=== PATIENT | female | born 1930 | race Caucasian/White ===

== ENCOUNTER 2017-06-09 13:19 | Observation (INO) | payer MEDICARE, BC ==
[2017-06-09] MEDS ORDERED: ASPIRIN 81 MG CHEW PO STA (13:50)
[2017-06-09] MEDS ORDERED: NITROGLYCERIN OINT 1 INCH/GM PACKET TOPICAL STA (13:50)
--- NOTE | 2017-06-09 13:53 | ED ---
General Adult HPI - General Chief complaint: Chest Pain Stated complaint: Chest Pain Time Seen by Provider: 06/09/17 13:20 Source: patient, RN notes reviewed Mode of arrival: wheelchair Limitations: no limitations - History of Present Illness Initial comments: And is extremely poor historian. Patient states she's had intermittent chest pain since yesterday she denies any difficulty breathing patient denies any shortness of breath. Patient denies any diaphoresis. Patient denies nausea. Patient states there was some pain in her left arm but she's not sure if it was associated with chest pain. Patient states pressing on her chest causes pain but she's not sure if that same chest pain she was experiencing. Patient denies any fever chills or cough. Patient denies any abdominal pain patient denies nausea vomiting diarrhea. Patient denies headache patient denies numbness weakness. Patient denies lightheadedness dizziness or near syncopal episode. Patient denies any recent injury or trauma. - Related Data Home Medications Medication Instructions Recorded Confirmed Aspirin EC [Ecotrin Low Dose] 81 mg PO DAILY 06/09/17 06/09/17 Donepezil [Aricept] 10 mg PO DAILY 06/09/17 06/09/17 Multivitamins, Thera [Multivitamin 1 tab PO DAILY 06/09/17 06/09/17 (formulary)] Pioglitazone [Actos] 15 mg PO DAILY 06/09/17 06/09/17 Propranolol HCl [Inderal Xl] 80 mg PO DAILY 06/09/17 06/09/17 Ramipril [Altace] 5 mg PO DAILY 06/09/17 06/09/17 Simvastatin [Zocor] 20 mg PO HS 06/09/17 06/09/17 glipiZIDE [Glucotrol] 5 mg PO AC-BID 06/09/17 06/09/17 metFORMIN HCL [Glucophage] 500 mg PO AC-BID 06/09/17 06/09/17 sitaGLIPtin PHOSPHATE [Januvia] 50 mg PO DAILY 06/09/17 06/09/17 Allergies Allergy/AdvReac Type Severity Reaction Status Date / Time No Known Allergies Allergy Verified 06/09/17 14:03 Review of Systems ROS Statement: Those systems with pertinent positive or pertinent negative responses have been documented in the HPI. ROS Other: All systems not noted in ROS Statement are negative. Past Medical History Past Medical History: Dementia, Diabetes Mellitus History of Any Multi-Drug Resistant Organisms: None Reported Past Surgical History: No Surgical Hx Reported Past Psychological History: No Psychological Hx Reported Smoking Status: Never smoker Past Alcohol Use History: Occasional Past Drug Use History: None Reported General Exam - General Exam Comments Initial Comments: GENERAL: Patient is well-developed and well-nourished. Patient is nontoxic and well- hydrated and is in no acute distress. ENT: Neck is soft and supple. No significant lymphadenopathy is noted. Oropharynx is clear. Moist mucous membranes. Neck has full range of motion without eliciting any pain. EYES: The sclera were anicteric and conjunctiva were pink and moist. Extraocular movements were intact and pupils were equal round and reactive to light. Eyelids were unremarkable. PULMONARY: Unlabored respirations. Good breath sounds bilaterally. No audible rales rhonchi or wheezing was noted. CARDIOVASCULAR: There is a regular rate and rhythm without any murmurs gallops or rubs. ABDOMEN: Soft and nontender with normal bowel sounds. No palpable organomegaly was noted. There is no palpable pulsatile mass. SKIN: Skin is clear with no lesions or rashes and otherwise unremarkable. NEUROLOGIC: Patient is alert and oriented x3. Cranial nerves II through XII are grossly intact. Motor and sensory are also intact. Normal speech, volume and content. Symmetrical smile. MUSCULOSKELETAL: Normal extremities with adequate strength and full range of motion. No lower extremity swelling or edema. No calf tenderness. LYMPHATICS: No significant lymphadenopathy is noted PSYCHIATRIC: Normal psychiatric evaluation. Normal interpersonal interactions appears functionally intact in deals appropriately with others. No signs of depression. No signs of anxiety. Limitations: no limitations Course Vital Signs 06/09/17 06/09/17 13:22 14:31 Temperature 98.1 F Pulse Rate 72 67 Respiratory 18 19 Rate Blood Pressure 163/74 161/71 O2 Sat by Pulse 95 95 Oximetry Medical Decision Making - Medical Decision Making EKG shows normal sinus rhythm at 66 bpm VA interval is on a 44 QRS is 74 QT interval is 404 QTC is 423. Patient's EKG shows no ST segment elevation or depression or T wave normalities are noted Chest x-ray shows no acute abnormality. Patient is no longer having any chest pain and has not had any chest pain while in the emergency department. - Lab Data Result diagrams: 06/09/17 14:08 08/17/17 14:08 Lab Results 06/09/17 06/09/17 06/09/17 Range/Units 14:08 14:08 14:08 WBC 5.8 (3.8-10.6) k/uL RBC 4.17 (3.80-5.40) m/uL Hgb 12.5 (11.4-16.0) gm/dL Hct 39.9 (34.0-46.0) % MCV 95.7 (80.0-100.0) fL MCH 30.1 (25.0-35.0) pg MCHC 31.4 (31.0-37.0) g/dL RDW 15.0 (11.5-15.5) % Plt Count 234 (150-450) k/uL Neutrophils % 62 % Lymphocytes % 22 % Monocytes % 10 % Eosinophils % 4 % Basophils % 1 % Neutrophils # 3.6 (1.3-7.7) k/uL Lymphocytes # 1.2 (1.0-4.8) k/uL Monocytes # 0.6 (0-1.0) k/uL Eosinophils # 0.2 (0-0.7) k/uL Basophils # 0.0 (0-0.2) k/uL PT (9.0-12.0) sec INR (<1.2) APTT (22.0-30.0) sec Sodium 138 (137-145) mmol/L Potassium 4.5 (3.5-5.1) mmol/L Chloride 103 (98-107) mmol/L Carbon Dioxide 26 (22-30) mmol/L Anion Gap 9 mmol/L BUN 19 H (7-17) mg/dL Creatinine 0.77 (0.52-1.04) mg/dL Est GFR (MDRD) Af Amer >60 (>60 ml/min/1.73 sqM) Est GFR (MDRD) Non-Af >60 (>60 ml/min/1.73 sqM) Glucose 375 H (74-99) mg/dL Calcium 9.5 (8.4-10.2) mg/dL Magnesium 1.5 L (1.6-2.3) mg/dL Total Bilirubin 0.4 (0.2-1.3) mg/dL AST 19 (14-36) U/L ALT 33 (9-52) U/L Alkaline Phosphatase 82 (38-126) U/L Total Creatine Kinase 27 L (30-135) U/L CK-MB (CK-2) 0.4 (0.0-2.4) ng/mL CK-MB (CK-2) Rel Index 1.5 Troponin I <0.012 (0.000-0.034) ng/mL Total Protein 6.5 (6.3-8.2) g/dL Albumin 3.7 (3.5-5.0) g/dL 06/09/17 Range/Units 14:08 WBC (3.8-10.6) k/uL RBC (3.80-5.40) m/uL Hgb (11.4-16.0) gm/dL Hct (34.0-46.0) % MCV (80.0-100.0) fL MCH (25.0-35.0) pg MCHC (31.0-37.0) g/dL RDW (11.5-15.5) % Plt Count (150-450) k/uL Neutrophils % % Lymphocytes % % Monocytes % % Eosinophils % % Basophils % % Neutrophils # (1.3-7.7) k/uL Lymphocytes # (1.0-4.8) k/uL Monocytes # (0-1.0) k/uL Eosinophils # (0-0.7) k/uL Basophils # (0-0.2) k/uL PT 10.2 (9.0-12.0) sec INR 1.0 (<1.2) APTT 22.0 (22.0-30.0) sec Sodium (137-145) mmol/L Potassium (3.5-5.1) mmol/L Chloride (98-107) mmol/L Carbon Dioxide (22-30) mmol/L Anion Gap mmol/L BUN (7-17) mg/dL Creatinine (0.52-1.04) mg/dL Est GFR (MDRD) Af Amer (>60 ml/min/1.73 sqM) Est GFR (MDRD) Non-Af (>60 ml/min/1.73 sqM) Glucose (74-99) mg/dL Calcium (8.4-10.2) mg/dL Magnesium (1.6-2.3) mg/dL Total Bilirubin (0.2-1.3) mg/dL AST (14-36) U/L ALT (9-52) U/L Alkaline Phosphatase (38-126) U/L Total Creatine Kinase (30-135) U/L CK-MB (CK-2) (0.0-2.4) ng/mL CK-MB (CK-2) Rel Index Troponin I (0.000-0.034) ng/mL Total Protein (6.3-8.2) g/dL Albumin (3.5-5.0) g/dL Disposition Clinical Impression: Chest pain Disposition: ADMITTED IP TO THIS HOSP Referrals: None,Stated [Primary Care Provider] - 1-2 days Time of Disposition: 15:31
[2017-06-09 14:18] LABS: Basophils % (A) 1 %; CH 30.6; CHCM 32.2; Eosinophils # (A) 0.2 k/uL (0-0.7); Eosinophils % (A) 4 %; HCT 39.9 % (34.0-46.0); HDW 2.43; HGB 12.5 gm/dL (11.4-16.0); Luc # (Auto) 0.15; Luc % (Auto) 3; Lymphocytes # (A) 1.2 k/uL (1.0-4.8); Lymphocytes % (A) 22 %; MCH 30.1 pg (25.0-35.0); MCHC 31.4 g/dL (31.0-37.0); MCV 95.7 fL (80.0-100.0); Mean Platelet Volume 7.9; Monocytes # (A) 0.6 k/uL (0-1.0); Monocytes % (A) 10 %; Neutrophils # (A) 3.6 k/uL (1.3-7.7); Neutrophils % (A) 62 %; RBC 4.17 m/uL (3.80-5.40); WBC 5.8 k/uL (3.8-10.6); WBC (Perox) 5.89
[2017-06-09 14:27] LABS: ALT 33 U/L (9-52); AST 19 U/L (14-36); Alkaline Phosphatase 82 U/L (38-126); Anion Gap 9 mmol/L; Blood Urea Nitrogen 19 mg/dL (7-17); Calcium 9.5 mg/dL (8.4-10.2); Carbon Dioxide 26 mmol/L (22-30); Chloride 103 mmol/L (98-107); Glucose 375 mg/dL (74-99); Magnesium 1.5 mg/dL (1.6-2.3); Non-African American GFR(MDRD) >60 (>60 ml/min/1.73 sqM); Potassium 4.5 mmol/L (3.5-5.1); Sodium 138 mmol/L (137-145); Total Bilirubin 0.4 mg/dL (0.2-1.3); Total Protein 6.5 g/dL (6.3-8.2)
--- NOTE | 2017-06-09 14:32 | XR ---
EXAMINATION TYPE: XR chest 2V DATE OF EXAM: 06/09/2017 COMPARISON: NONE HISTORY: Chest discomfort TECHNIQUE: Frontal and lateral views of the chest are obtained. FINDINGS: There is no focal air space opacity, pleural effusion, or pneumothorax seen. The cardiac silhouette size is within normal limits. The osseous structures are intact. IMPRESSION: No acute cardiopulmonary process.
[2017-06-09 14:37] LABS: Prothrombin Time 10.2 sec (9.0-12.0)
[2017-06-09 14:54] LABS: Creatine Kinase 27 U/L (30-135)
[2017-06-09 15:05] LABS: Creatine Kinase MB 0.4 ng/mL (0.0-2.4); Troponin I <0.012 ng/mL (0.000-0.034)
[2017-06-09] MEDS ORDERED: NITROGLYCERIN SL TABS 0.4 MG TAB SUBLINGUAL PRN (15:31)
[2017-06-09 16:43] VITALS: RESP 18
[2017-06-09 16:59] LABS: Glucose,Whole Blood 210 mg/dL (75-99)
[2017-06-09] MEDS: NITROGLYCERIN OINT 1 INCH/GM PACKET TOPICAL SCH (18:34)
[2017-06-09] MEDS: INSULIN LISPRO (humaLOG) 300 UNIT/3 ML VIAL SQ SCH (20:16)
[2017-06-09 20:17] LABS: Glucose,Whole Blood 288 mg/dL (75-99)
[2017-06-09] MEDS ORDERED: ATORVASTATIN 10 MG TAB PO SCH (21:00)
[2017-06-09 21:11] LABS: Creatine Kinase 24 U/L (30-135)
[2017-06-09 21:24] LABS: Creatine Kinase MB 0.4 ng/mL (0.0-2.4); Troponin I <0.012 ng/mL (0.000-0.034)
[2017-06-09 22:17] LABS: Hemoglobin A1C 9.1 % (4.2-6.1)
[2017-06-10] MEDS: NITROGLYCERIN OINT 1 INCH/GM PACKET TOPICAL SCH ×2 (00:23→05:00)
[2017-06-10 02:20] LABS: Cholesterol 124 mg/dL (<200); HDL Cholesterol 53 mg/dL (40-60)
[2017-06-10 02:26] LABS: Creatine Kinase 20 U/L (30-135)
[2017-06-10 02:40] LABS: Creatine Kinase MB 0.3 ng/mL (0.0-2.4); Troponin I <0.012 ng/mL (0.000-0.034)
[2017-06-10 04:44] VITALS: PULSE 68
[2017-06-10 07:01] LABS: Glucose,Whole Blood 151 mg/dL (75-99)
[2017-06-10] MEDS ORDERED: glipiZIDE 5 MG TAB PO SCH (07:30)
[2017-06-10] MEDS ORDERED: metFORMIN 500 MG TAB PO SCH (07:30)
[2017-06-10 07:37] VITALS: BP 115/60; TEMP 98.3
[2017-06-10] MEDS: INSULIN LISPRO (humaLOG) 300 UNIT/3 ML VIAL SQ SCH (08:58)
[2017-06-10] MEDS ORDERED: LISINOPRIL 20 MG TAB PO SCH (09:00)
[2017-06-10] MEDS ORDERED: PROPRANOLOL LA 80 MG CAP.SA.24H PO SCH (09:00)
[2017-06-10] MEDS ORDERED: LINAGLIPTIN 5 MG TABLET PO SCH (09:00)
[2017-06-10] MEDS ORDERED: ASPIRIN 81 MG CHEW PO SCH (09:00)
[2017-06-10] MEDS ORDERED: PIOGLITAZONE 15 MG TAB PO SCH (09:00)
[2017-06-10] MEDS ORDERED: ASPIRIN 325 MG TAB PO SCH (09:00)
[2017-06-10] MEDS ORDERED: DONEPEZIL 10 MG TAB PO SCH (09:00)
[2017-06-10 09:36] VITALS: BMI 23.6
--- NOTE | 2017-06-10 11:03 | HP ---
DATE OF ADMISSION: 06/09/17 CHIEF COMPLAINT: Chest pain. HISTORY OF PRESENT ILLNESS: This 86-year-old woman who was admitted with chest pain to [facility]. The patient also has significant dementia and diabetes mellitus Type 2. The chest pain is going on and on for the past several days apparently. The story is apparently changing according to the staff. The pain is mainly in the anterior part of the chest and also radiating into the left arm also. There is no history of any fever, rigors or chills. No history of any headache, loss of consciousness or seizures. Blood sugar was found to be random was 374 and now 210. Cardiology evaluation in progress. Past medical history of dementia, diabetes Type 2. Mediations prior to admission include: 1. Januvia 50 mg po daily. 2. Glucophage 500 mg b.i.d. 3. Glucotrol 5 mg a.c. b.i.d. 4. Zocor 20 mg q.h.s. 6. Inderal XL 80 mg po daily. 7. Actos 50 mg po daily. 8. Multivitamins one po daily. 9. Aricept 10 mg po daily. 10. Ecotrin 81 mg. ALLERGIES: None. FAMILY HISTORY, SOCIAL HISTORY AND REVIEW OF SYSTEMS: Could not be taken. No history of smoking per chart. The patient is confused. PHYSICAL EXAMINATION: The patient is confused. Pulse 61. Blood pressure 141/ 68. Respiratory rate 18, temperature 97.4. Pulse ox 97% on room air. HEENT: Conjunctivae normal. NECK: No JVD. Cardiovascular: S1, S2. Respiratory: Breath sounds diminished at the bases. No rhonchi and no crackles. Abdomen is soft, nontender. No mass palpable. Legs: No edema. No swelling. Nervous system: Higher functions as mentioned earlier. Moves all four limbs. No focal deficits. Lymphatics: No lymph nodes palpable in the neck, axilla or groin. Skin: No ulcer, rash or bleeding. LABS: CBC within normal limits. Glucose 377. Magnesium 1.5. FINAL DIAGNOSES: 1. Chest pain, possible unstable angina. 2. Diabetes Type 2. 3. Dementia. 4. Hypomagnesemia. 5. RECOMMENDATIONS AND DISCUSSION: In this 86 -year-old woman who presented with multiple complex medical issues, we will monitor the patient closely. Continue the current medications. Continue symptomatic treatment. Rule out myocardial infarction. Otherwise, cardiology consultation. Medical treatment possibly because of multiple complex medical issues and advanced dementia. Prognosis guarded. Further recommendations to follow. MTDD
[2017-06-10] MEDS ORDERED: Magnesium Replacement Protocol 1 EACH MISC MISCELLANE PRN (11:06)
[2017-06-10] MEDS ORDERED: MAGNESIUM OXIDE 400 MG TAB PO STA (11:14)
[2017-06-10] MEDS ORDERED: MULTIVITAMINS, THERA 1 EACH TAB PO SCH (12:00)
--- NOTE | 2017-06-10 13:28 | P.CRDCN ---
History of Present Illness Consult date: 06/10/17 History of present illness: This is a 86-year-old female. Past medical history significant for with diabetes , hypertension, hyperlipidemia, dementia. She sees Dr. THAIS Frank as an outpatient. Patient presents with complaints of episode of midsternal chest pain associated with nausea and radiation of the pain into the left arm. Patient is a poor historian. and daughter at the bedside filling in the blanks of the story. Apparently the patient was sitting down not exerting herself when the pain began. The pain lasted for approximately 3-5 minutes and subsided on its own. She states she's had this type of pain off and on intermittently for the previous 5 years. She currently denies any complaints of chest pain, shortness of breath, nausea or dizziness. EKG done shows normal sinus mechanism, rate of 66 beats per minute with no T- wave abnormality. When compared with old EKG this appears consistent. CBC was within normal limits, coagulation profile at baseline. Magnesium 1.5, potassium Troponins are negative 3. Chest x-ray showed no acute cardiopulmonary process. Review of Systems REVIEW OF SYSTEMS: Patient denies any chest discomfort. No shortness of breath. No diaphoresis. Denies headache, dizziness, blurred vision, double vision. No dyspnea on exertion. Patient denies any stomach discomfort. No nausea, vomiting. No hematochezia. No hematemesis. Denies any black stools or blood in his stools. No syncope. No palpitations. No cough. No recent fever or chills. No muscle weakness or numbness. Past Medical History Past Medical History: Dementia, Diabetes Mellitus, Hyperlipidemia, Hypertension Additional Past Medical History / Comment(s): POOR HISTORIAN, PAST FALLS -BROKE PELVIS(NO SX REQUIRED AND AN ELBOW "NOT SURE WHICH ONE" HAS PIN IN PLACE History of Any Multi-Drug Resistant Organisms: None Reported Past Surgical History: Orthopedic Surgery Additional Past Surgical History / Comment(s): ELBOW REPAIRED HAS A PIN IN PLACE , CATARACTS. Past Anesthesia/Blood Transfusion Reactions: No Reported Reaction Smoking Status: Never smoker - Past Family History Father Family Medical History: Myocardial Infarction ([place]) Mother Family Medical History: Cancer Additional Family Medical History / Comment(s): BREAST CANCER, LEUKEMIA Medications and Allergies Home Medications Medication Instructions Recorded Confirmed Type Aspirin EC [Ecotrin Low Dose] 81 mg PO DAILY 06/09/17 06/09/17 History Donepezil [Aricept] 10 mg PO DAILY 06/09/17 06/09/17 History Multivitamins, Thera [Multivitamin 1 tab PO DAILY 06/09/17 06/09/17 History (formulary)] Pioglitazone [Actos] 15 mg PO DAILY 06/09/17 06/09/17 History Propranolol HCl [Inderal Xl] 80 mg PO DAILY 06/09/17 06/09/17 History Ramipril [Altace] 5 mg PO DAILY 06/09/17 06/09/17 History Simvastatin [Zocor] 20 mg PO HS 06/09/17 06/09/17 History glipiZIDE [Glucotrol] 5 mg PO AC-BID 06/09/17 06/09/17 History metFORMIN HCL [Glucophage] 500 mg PO AC-BID 06/09/17 06/09/17 History sitaGLIPtin PHOSPHATE [Januvia] 50 mg PO DAILY 06/09/17 06/09/17 History Allergies Allergy/AdvReac Type Severity Reaction Status Date / Time No Known Allergies Allergy Verified 06/09/17 14:03 Physical Exam Vitals: Vital Signs Temp Pulse Pulse Pulse Resp BP BP 06/10/17 07:35 98.3 F 68 18 115/60 06/10/17 04:00 98 F 68 18 112/65 06/10/17 03:35 64 18 06/10/17 00:00 73 18 06/09/17 23:17 98 F 62 18 139/88 06/09/17 20:00 72 18 06/09/17 19:19 98.3 F 75 18 114/64 06/09/17 16:23 97.4 F L 61 18 141/68 06/09/17 15:31 06/09/17 14:31 67 19 161/71 06/09/17 13:22 98.1 F 72 18 163/74 Pulse Ox 06/10/17 07:35 95 06/10/17 04:00 93 L 06/10/17 03:35 06/10/17 00:00 06/09/17 23:17 95 06/09/17 20:00 06/09/17 19:19 95 06/09/17 16:23 97 06/09/17 15:31 95 06/09/17 14:31 95 06/09/17 13:22 95 Intake and Output 06/09/17 06/10/17 06/10/17 22:59 06:59 14:59 Intake Total 240 Balance 240 Intake: Oral 240 Other: # Voids 2 Weight 62.3 kg GENERAL: This is a 86-year-old patient female in no apparent distress at the time of my examination. and daughter at the bedside. HEENT: Head is atraumatic, normocephalic. Pupils are equal, round. Sclerae anicteric. Conjunctivae are clear. Mucous membranes of the mouth are moist. Neck is supple. There is no jugular venous distention. No carotid bruit is heard. LUNGS: Clear to auscultation no wheezes, rales or rhonchi. No chest wall tenderness is noted on palpation or with deep breathing. HEART: Regular rate and rhythm without murmurs, rubs or gallops. S1 and S2 heard. ABDOMEN: Soft, nontender. Bowel sounds are heard. No organomegaly noted. EXTREMITIES: 2+ peripheral pulses with no evidence of peripheral edema and no calf tenderness noted. NEUROLOGIC: Patient is awake, alert and oriented x3. Results 06/09/17 14:08 06/09/17 14:08 Cardiac Enzymes 06/09/17 06/09/17 06/09/17 Range/Units 14:08 14:08 20:22 AST 19 (14-36) U/L CK-MB (CK-2) 0.4 0.4 (0.0-2.4) ng/mL Troponin I <0.012 <0.012 (0.000-0.034) ng/mL 06/10/17 Range/Units 01:46 AST (14-36) U/L CK-MB (CK-2) 0.3 (0.0-2.4) ng/mL Troponin I <0.012 (0.000-0.034) ng/mL Coagulation 06/09/17 Range/Units 14:08 PT 10.2 (9.0-12.0) sec APTT 22.0 (22.0-30.0) sec Lipids 06/10/17 Range/Units 01:46 Triglycerides 86 (<150) mg/dL Cholesterol 124 (<200) mg/dL HDL Cholesterol 53 (40-60) mg/dL CBC 06/09/17 Range/Units 14:08 WBC 5.8 (3.8-10.6) k/uL RBC 4.17 (3.80-5.40) m/uL Hgb 12.5 (11.4-16.0) gm/dL Hct 39.9 (34.0-46.0) % Plt Count 234 (150-450) k/uL Comprehensive Metabolic Panel 06/09/17 Range/Units 14:08 Sodium 138 (137-145) mmol/L Potassium 4.5 (3.5-5.1) mmol/L Chloride 103 (98-107) mmol/L Carbon Dioxide 26 (22-30) mmol/L BUN 19 H (7-17) mg/dL Creatinine 0.77 (0.52-1.04) mg/dL Glucose 375 H (74-99) mg/dL Calcium 9.5 (8.4-10.2) mg/dL AST 19 (14-36) U/L ALT 33 (9-52) U/L Alkaline Phosphatase 82 (38-126) U/L Total Protein 6.5 (6.3-8.2) g/dL Albumin 3.7 (3.5-5.0) g/dL Current Medications Generic Name Dose Route Start Last Admin Trade Name Freq PRN Reason Stop Dose Admin Aspirin 81 mg 06/10/17 09:00 Aspirin PO DAILY [facility] Atorvastatin Calcium 10 mg 06/09/17 21:00 06/09/17 20:16 Lipitor PO 10 mg HS GIFTY Administration Donepezil HCl 10 mg 06/10/17 09:00 Aricept PO DAILY [facility] Glipizide 5 mg 06/10/17 07:30 Glucotrol PO AC-BID [facility] Insulin Human Lispro 0 unit 06/09/17 21:00 06/09/17 20:16 Humalog SQ 5 unit ACHS [facility] Administration Protocol Linagliptin 5 mg 06/10/17 09:00 Tradjenta PO DAILY [facility] Lisinopril 20 mg 06/10/17 09:00 Zestril PO DAILY [facility] Metformin HCl 500 mg 06/10/17 07:30 Glucophage PO AC-BID [facility] Multivitamins 1 each 06/10/17 12:00 Theragran PO 1200 [facility] Nitroglycerin 1 inch 06/09/17 18:00 06/10/17 05:00 Nitro-Bid Oint TOPICAL Not Given Q6HR GIFTY Nitroglycerin 0.4 mg 06/09/17 15:31 Nitrostat SUBLINGUAL Q5M PRN Chest Pain Pioglitazone HCl 15 mg 06/10/17 09:00 Actos PO DAILY G[facility] Propranolol HCl 80 mg 06/10/17 09:00 Inderal La PO DAILY [facility] Intake and Output 06/09/17 06/10/17 06/10/17 22:59 06:59 14:59 Intake Total 240 Balance 240 Intake: Oral 240 Other: # Voids 2 Weight 62.3 kg 06/09/17 14:08 06/09/17 14:08 - EKG Interpretation EKG: sinus rhythm, normal axis, normal QRS, normal ST/T Assessment and Plan Plan: ASSESSMENT 1. Chest pain, atypical 2. Diabetes mellitus type 2 3. Hypertension PLAN The presentation of this patient is not consistent with an acute coronary syndrome. EKG and troponins don't indicate any damage to the heart. She is stable for discharge home with all her current medications as previously ordered. She can follow up with her PCP within the next week. Plan explained to family at the bedside. Nurse Practitioner note has been reviewed, I agree with a documented findings and plan of care. Patient was seen and examined.
--- NOTE | 2017-06-24 14:07 | P.DS ---
Providers Date of admission: 06/09/17 15:31 Attending physician: Hattie Sepulveda Consults: 06/09/17 15:31 Consult Physician Urgent Consulting Provider: [facility] Consult Reason/Comments: Chest pain Do you want consulting provider notified?: Yes Primary care physician: Stated None Hospital Course: Date of service 06/10/2017 This 86-year-old woman is admitted chest pain treated medically. Cardiology saw the. Patient. Recommended medical treatment the outpatient setting. Recommended cardiology and primary physician follow-up in the preceding stable overall prognosis guarded. On exam vitals stable. Cardio S1-S2 normal. Breath sounds equal. Abdomen soft nontender. Final diagnosis 1. Chest pain possibly unstable angina possibly muscle skeletal. 2. Diabetes was type II 3. Dementia 4. Hypomagnesemia Plan - Discharge Summary New Discharge Prescriptions: Continue Aspirin EC [Ecotrin Low Dose] 81 mg PO DAILY Donepezil [Aricept] 10 mg PO DAILY glipiZIDE [Glucotrol] 5 mg PO AC-BID metFORMIN HCL [Glucophage] 500 mg PO AC-BID Multivitamins, Thera [Multivitamin (formulary)] 1 tab PO DAILY Pioglitazone [Actos] 15 mg PO DAILY Propranolol HCl [Inderal Xl] 80 mg PO DAILY Ramipril [Altace] 5 mg PO DAILY Simvastatin [Zocor] 20 mg PO HS sitaGLIPtin PHOSPHATE [Januvia] 50 mg PO DAILY Discharge Medication List Aspirin EC [Ecotrin Low Dose] 81 mg PO DAILY 06/09/17 [History] Donepezil [Aricept] 10 mg PO DAILY 06/09/17 [History] Multivitamins, Thera [Multivitamin (formulary)] 1 tab PO DAILY 06/09/17 [History ] Pioglitazone [Actos] 15 mg PO DAILY 06/09/17 [History] Propranolol HCl [Inderal Xl] 80 mg PO DAILY 06/09/17 [History] Ramipril [Altace] 5 mg PO DAILY 06/09/17 [History] Simvastatin [Zocor] 20 mg PO HS 06/09/17 [History] glipiZIDE [Glucotrol] 5 mg PO AC-BID 06/09/17 [History] metFORMIN HCL [Glucophage] 500 mg PO AC-BID 06/09/17 [History] sitaGLIPtin PHOSPHATE [Januvia] 50 mg PO DAILY 06/09/17 [History] Follow up Appointment(s)/Referral(s): Gómez Merchant DO [REFERRING] - 3 Days Ambulatory/Diagnostic Orders: Complete Blood Count w/diff [LAB.AMB] Time Frame: 3 Days, Location: Determined By Patient Patient Instructions/Handouts: Chest Pain (DC) Activity/Diet/Wound Care/Special Instructions: Diet: Consistent carb Activity: Limited until follow up. FOLLOW UP WITH DR GOMEZ 1-2 DAYS. Discharge Disposition: HOME SELF-CARE
== END 2017-06-10 11:50 | disposition home or self-care (01) ==
LOC: EC 13:19 → 3OBS 15:31
PROVIDERS: ADMIT Hospitalist; ATTEND Hospitalist
DX: R07.89 Other chest pain (principal); R11.0 Nausea; E78.5 Hyperlipidemia, unspecified; I10 Essential (primary) hypertension; E83.42 Hypomagnesemia; E11.9 Type 2 diabetes mellitus without complications; F03.90 Unspecified dementia, unspecified severity, without behavioral disturbance, psychotic disturbance, mood disturbance, and anxiety; Z79.82 Long term (current) use of aspirin; Z79.899 Other long term (current) drug therapy; Z79.84 Long term (current) use of oral hypoglycemic drugs; Z82.49 Family history of ischemic heart disease and other diseases of the circulatory system; Z80.6 Family history of leukemia; Z80.3 Family history of malignant neoplasm of breast
CPT/HCPCS: 99285; 36415; 93005; 80061; 80053; 83036; 82550 ×2; 82553 ×2; 83735; 84484 ×2; 85025; 85610; 85730; 71020; G0378 ×2

== ENCOUNTER 2021-05-17 10:32 | Inpatient (IN) | payer MEDICARE, BC ==
[2021-05-17] MEDS ORDERED: SODIUM CHLORIDE 0.9% 1,000 ML IV STA (10:37)
[2021-05-17] MEDS ORDERED: SODIUM CHLORIDE 0.9% 1,000 ML IV ONE (10:37)
--- NOTE | 2021-05-17 10:46 | ED ---
Altered Mental Status HPI - General Stated Complaint: altered mental status Time Seen by Provider: 05/17/21 10:32 Source: EMS, RN notes reviewed, old records reviewed Mode of arrival: EMS - History of Present Illness Initial Comments: This 89-year-old female with a history of dementia who was brought in by EMS because of declining mental status and increased aggressiveness decreased appetite. She apparently does have strong smelling urine per paramedics. She has been combative. She was noted have a blood glucose of 480 she is on oral hypoglycemics. She did not take any medication today. No reports of nausea vomiting fevers chills or sweats. MD Complaint: confusion, decreased responsiveness - Related Data Home Medications Medication Instructions Recorded Confirmed Pioglitazone [Actos] 15 mg PO DAILY 06/09/17 05/17/21 glipiZIDE [Glucotrol] 2.5 mg PO DAILY 06/09/17 05/17/21 metFORMIN HCL [Glucophage] 500 mg PO AC-BID PRN 06/09/17 05/17/21 ramipriL [Altace] 5 mg PO DAILY 06/09/17 05/17/21 sitaGLIPtin PHOSPHATE [Januvia] 50 mg PO DAILY PRN 06/09/17 05/17/21 Olopatadine HCl [Pataday] 2 drops BOTH EYES HS 05/17/21 05/17/21 Allergies Allergy/AdvReac Type Severity Reaction Status Date / Time No Known Allergies Allergy Verified 06/09/17 14:03 Review of Systems ROS Statement: Those systems with pertinent positive or pertinent negative responses have been documented in the HPI. ROS Other: All systems not noted in ROS Statement are negative. Past Medical History Past Medical History: Dementia, Diabetes Mellitus, Hyperlipidemia, Hypertension Additional Past Medical History / Comment(s): POOR HISTORIAN, PAST FALLS -BROKE PELVIS(NO SX REQUIRED AND AN ELBOW "NOT SURE WHICH ONE" HAS PIN IN PLACE History of Any Multi-Drug Resistant Organisms: None Reported Past Surgical History: Orthopedic Surgery Additional Past Surgical History / Comment(s): ELBOW REPAIRED HAS A PIN IN PLACE, CATARACTS. Past Anesthesia/Blood Transfusion Reactions: No Reported Reaction Past Psychological History: No Psychological Hx Reported Additional Psychological History / Comment(s): PT LIVES WITH HER . NO ASSISTIVE DEVICES USED . NO HOME CARE SERVICE USED. Past Alcohol Use History: Occasional Past Drug Use History: None Reported - Past Family History Father Family Medical History: Myocardial Infarction ([place]) Mother Family Medical History: Cancer Additional Family Medical History / Comment(s): BREAST CANCER, LEUKEMIA General Exam - General Exam Comments Initial Comments: This is a well-developed asthenic appearing female who is awake and confused but alert General appearance: alert, anxious Head exam: Present: atraumatic, normocephalic, normal inspection Eye exam: Present: normal appearance, PERRL, EOMI. Absent: scleral icterus, conjunctival injection, periorbital swelling ENT exam: Present: mucous membranes dry Neck exam: Present: normal inspection, full ROM, other (No stridor JVD or bruits). Absent: tenderness, meningismus, lymphadenopathy Respiratory exam: Present: normal lung sounds bilaterally. Absent: respiratory distress, wheezes, rales, rhonchi, stridor Cardiovascular Exam: Present: normal rhythm, tachycardia, normal heart sounds. Absent: systolic murmur, diastolic murmur, rubs, gallop, clicks GI/Abdominal exam: Present: soft, normal bowel sounds. Absent: distended, tenderness, guarding, rebound, rigid Extremities exam: Present: normal inspection, full ROM, normal capillary refill. Absent: tenderness, pedal edema, joint swelling, calf tenderness Back exam: Present: normal inspection Neurological exam: Present: alert, altered, CN II-XII intact Psychiatric exam: Present: anxious Skin exam: Present: warm, dry, intact, normal color. Absent: rash Course Vital Signs 05/17/21 05/17/21 05/17/21 10:57 10:58 11:00 Temperature 97.8 F Pulse Rate 108 H Respiratory 18 Rate Blood Pressure 91/59 O2 Sat by Pulse 91 L 86 L 94 L Oximetry 05/17/21 05/17/21 05/17/21 11:53 12:33 13:45 Temperature Pulse Rate 104 H 96 106 H Respiratory 18 18 18 Rate Blood Pressure 82/59 67/51 106/48 O2 Sat by Pulse 95 95 94 L Oximetry 05/17/21 05/17/21 05/17/21 14:03 14:29 14:30 Temperature Pulse Rate 98 Respiratory Rate Blood Pressure 72/53 100/33 100/33 O2 Sat by Pulse Oximetry Medical Decision Making - Medical Decision Making I did have multiple reevaluation the patient did have multiple discussions with family members patient is to be no code supportive care only she does demonstrate evidence of NSTEMI as well as DKA. She was demonstrating evidence of hypotensive episodes the pressures have improved however. She does have lactic acidosis secondary to viral depletion and DKA. No definitive effects process has been found however the urine was thought to be foul-smelling the patient oliguria thus far. He will be placed on antibiotics. - Lab Data Result diagrams: 05/17/21 11:23 05/17/21 11:23 Lab Results 05/17/21 05/17/21 05/17/21 Range/Units 11:23 11:23 11:23 WBC 14.4 H (3.8-10.6) k/uL RBC 3.60 L (3.80-5.40) m/uL Hgb 11.4 (11.4-16.0) gm/dL Hct 36.2 (34.0-46.0) % MCV 100.5 H (80.0-100.0) fL MCH 31.7 (25.0-35.0) pg MCHC 31.5 (31.0-37.0) g/dL RDW 13.0 (11.5-15.5) % Plt Count 218 (150-450) k/uL MPV 9.9 Neutrophils % 84 % Lymphocytes % 10 % Monocytes % 4 % Eosinophils % 1 % Basophils % 0 % Neutrophils # 12.1 H (1.3-7.7) k/uL Lymphocytes # 1.5 (1.0-4.8) k/uL Monocytes # 0.5 (0-1.0) k/uL Eosinophils # 0.1 (0-0.7) k/uL Basophils # 0.0 (0-0.2) k/uL Hypochromasia Slight PT 10.1 (9.0-12.0) sec INR 0.9 (<1.2) APTT 19.1 L (22.0-30.0) sec Sodium 138 (137-145) mmol/L Potassium 4.6 (3.5-5.1) mmol/L Chloride 102 (98-107) mmol/L Carbon Dioxide 18 L (22-30) mmol/L Anion Gap 18 mmol/L BUN 45 H (7-17) mg/dL Creatinine 1.57 H (0.52-1.04) mg/dL Est GFR (CKD-EPI)AfAm 34 (>60 ml/min/1.73 sqM) Est GFR (CKD-EPI)NonAf 29 (>60 ml/min/1.73 sqM) Glucose 503 H* (74-99) mg/dL POC Glucose (mg/dL) (75-99) mg/dL POC Glu Grommet Man ID Lactic Ac Sepsis Rflx Plasma Lactic Acid Zay (0.7-2.0) mmol/L Calcium 9.8 (8.4-10.2) mg/dL Total Bilirubin 1.4 H (0.2-1.3) mg/dL AST 140 H (14-36) U/L ALT 51 H (4-34) U/L Alkaline Phosphatase 130 H (38-126) U/L Ammonia (<30) umol/L Creatine Kinase 547 H (30-135) U/L Troponin I (0.000-0.034) ng/mL Total Protein 6.7 (6.3-8.2) g/dL Albumin 3.8 (3.5-5.0) g/dL Acetone, Qual Positive (Negative) 05/17/21 05/17/21 05/17/21 Range/Units 11:23 11:23 12:14 WBC (3.8-10.6) k/uL RBC (3.80-5.40) m/uL Hgb (11.4-16.0) gm/dL Hct (34.0-46.0) % MCV (80.0-100.0) fL MCH (25.0-35.0) pg MCHC (31.0-37.0) g/dL RDW (11.5-15.5) % Plt Count (150-450) k/uL MPV Neutrophils % % Lymphocytes % % Monocytes % % Eosinophils % % Basophils % % Neutrophils # (1.3-7.7) k/uL Lymphocytes # (1.0-4.8) k/uL Monocytes # (0-1.0) k/uL Eosinophils # (0-0.7) k/uL Basophils # (0-0.2) k/uL Hypochromasia PT (9.0-12.0) sec INR (<1.2) APTT (22.0-30.0) sec Sodium (137-145) mmol/L Potassium (3.5-5.1) mmol/L Chloride (98-107) mmol/L Carbon Dioxide (22-30) mmol/L Anion Gap mmol/L BUN (7-17) mg/dL Creatinine (0.52-1.04) mg/dL Est GFR (CKD-EPI)AfAm (>60 ml/min/1.73 sqM) Est GFR (CKD-EPI)NonAf (>60 ml/min/1.73 sqM) Glucose (74-99) mg/dL POC Glucose (mg/dL) (75-99) mg/dL POC Glu Grommet Man ID Lactic Ac Sepsis Rflx Plasma Lactic Acid Zay 5.5 H* (0.7-2.0) mmol/L Calcium (8.4-10.2) mg/dL Total Bilirubin (0.2-1.3) mg/dL AST (14-36) U/L ALT (4-34) U/L Alkaline Phosphatase (38-126) U/L Ammonia <9 (<30) umol/L Creatine Kinase (30-135) U/L Troponin I 27.000 H* (0.000-0.034) ng/mL Total Protein (6.3-8.2) g/dL Albumin (3.5-5.0) g/dL Acetone, Qual (Negative) 05/17/21 05/17/21 Range/Units 12:36 13:54 WBC (3.8-10.6) k/uL RBC (3.80-5.40) m/uL Hgb (11.4-16.0) gm/dL Hct (34.0-46.0) % MCV (80.0-100.0) fL MCH (25.0-35.0) pg MCHC (31.0-37.0) g/dL RDW (11.5-15.5) % Plt Count (150-450) k/uL MPV Neutrophils % % Lymphocytes % % Monocytes % % Eosinophils % % Basophils % % Neutrophils # (1.3-7.7) k/uL Lymphocytes # (1.0-4.8) k/uL Monocytes # (0-1.0) k/uL Eosinophils # (0-0.7) k/uL Basophils # (0-0.2) k/uL Hypochromasia PT (9.0-12.0) sec INR (<1.2) APTT (22.0-30.0) sec Sodium (137-145) mmol/L Potassium (3.5-5.1) mmol/L Chloride (98-107) mmol/L Carbon Dioxide (22-30) mmol/L Anion Gap mmol/L BUN (7-17) mg/dL Creatinine (0.52-1.04) mg/dL Est GFR (CKD-EPI)AfAm (>60 ml/min/1.73 sqM) Est GFR (CKD-EPI)NonAf (>60 ml/min/1.73 sqM) Glucose (74-99) mg/dL POC Glucose (mg/dL) 399 H (75-99) mg/dL POC Glu Grommet Man ID Montrell Gill Lactic Ac Sepsis Rflx Y Plasma Lactic Acid Zay (0.7-2.0) mmol/L Calcium (8.4-10.2) mg/dL Total Bilirubin (0.2-1.3) mg/dL AST (14-36) U/L ALT (4-34) U/L Alkaline Phosphatase (38-126) U/L Ammonia (<30) umol/L Creatine Kinase (30-135) U/L Troponin I (0.000-0.034) ng/mL Total Protein (6.3-8.2) g/dL Albumin (3.5-5.0) g/dL Acetone, Qual (Negative) - EKG Data -: EKG Interpreted by Me EKG shows normal: sinus rhythm EKG Comments: Sinus tachycardia 122 and PACs noted DE interval 148 QRS duration 148 QT since QTC 376/535) bundle-branch block left anterior fascicular block evidence of old septal changes - Radiology Data Radiology results: report reviewed (Imaging reviewed imaging and), image reviewed Critical Care Time Critical Care Time: Yes Total Critical Care Time: 39 Critical Care Time: Critical care time includes initial presentation with history physical labs x- rays discussed with paramedics upon arrival multiple reevaluation the patient multiple discussions with family members BUN of old charting discussion with him he is orders and documentation the above Disposition Clinical Impression: Delirium due to general medical condition, Non-STEMI (non-ST elevated myocardial infarction), DKA (diabetic ketoacidosis), Hypotensive episode, Oliguria, Dehydration, Dementia, Failure to thrive Disposition: ADMITTED IP TO THIS HOSP Condition: Poor Referrals: Eduardo Cameron MD [Primary Care Provider] - 1-2 days
[2021-05-17 11:00] VITALS: TEMP 97.8
[2021-05-17 11:34] LABS: Basophils % (A) 0 %; Eosinophils # (A) 0.1 k/uL (0-0.7); Eosinophils % (A) 1 %; HCT 36.2 % (34.0-46.0); HGB 11.4 gm/dL (11.4-16.0); Hypochromasia Slight; Lymphocytes # (A) 1.5 k/uL (1.0-4.8); Lymphocytes % (A) 10 %; MCH 31.7 pg (25.0-35.0); MCHC 31.5 g/dL (31.0-37.0); MCV 100.5 fL (80.0-100.0); Mean Platelet Volume 9.9; Monocytes # (A) 0.5 k/uL (0-1.0); Monocytes % (A) 4 %; Neutrophils # (A) 12.1 k/uL (1.3-7.7); Neutrophils % (A) 84 %; Platelet Count 218 k/uL (150-450); WBC 14.4 k/uL (3.8-10.6)
[2021-05-17 11:48] LABS: AST 140 U/L (14-36); African American GFR (CKD) 34 (>60 ml/min/1.73 sqM); Albumin 3.8 g/dL (3.5-5.0); Alkaline Phosphatase 130 U/L (38-126); Anion Gap 18 mmol/L; Blood Urea Nitrogen 45 mg/dL (7-17); Calcium 9.8 mg/dL (8.4-10.2); Carbon Dioxide 18 mmol/L (22-30); Chloride 102 mmol/L (98-107); Creatine Kinase 547 U/L (30-135); Non-African American GFR(CKD) 29 (>60 ml/min/1.73 sqM); Potassium 4.6 mmol/L (3.5-5.1); Sodium 138 mmol/L (137-145); Total Bilirubin 1.4 mg/dL (0.2-1.3); Total Protein 6.7 g/dL (6.3-8.2)
[2021-05-17 12:00] LABS: ALT 51 U/L (4-34); Glucose 503 mg/dL (74-99)
[2021-05-17] MEDS ORDERED: INSULIN REGULAR 100 UNIT/ML VIAL (IV) IV ONE (12:03)
[2021-05-17 12:05] LABS: INR 0.9 (<1.2); Prothrombin Time 10.1 sec (9.0-12.0)
[2021-05-17 12:10] LABS: Partial Thromboplastin Time 19.1 sec (22.0-30.0)
--- NOTE | 2021-05-17 12:15 | CT ---
EXAMINATION TYPE: CT brain wo con DATE OF EXAM: 05/17/2021 COMPARISON: No prior CT head. Limited comparison made to brain MR dated 10/09/2015. HISTORY: altered mental status TECHNIQUE: CT scan of the head performed without contrast CT DLP: 1188.4 mGycm Automated exposure control for dose reduction was used. FINDINGS: No acute intracranial hemorrhage, midline shift or mass effect. Wei-white matter differentiation is preserved. There is brain volume loss and evidence of chronic microvascular ischemic changes. The degree of vent ricular dilatation is comparable to brain MR ventricle dilatation in 2015 however nonobstructive hydr ocephalus cannot be reliably excluded on imaging. There are scattered low attenuating lesions in the bilateral basal ganglia suggesting remote lacunar infarcts. Atherosclerotic calcifications are seen in the intracranial internal carotid arteries and vertebrobas ilar arteries. No acute orbital, osseous or soft tissue abnormality. No air-fluid levels seen in the mastoid air cells. IMPRESSION: 1. NO ACUTE INTRACRANIAL HEMORRHAGE MIDLINE SHIFT OR MASS EFFECT. 2. ADVANCED BRAIN VOLUME LOSS, CHRONIC MICROVASCULAR ISCHEMIC CHANGES AND POSSIBLE REMOTE LACUNAR INF ARCTS.
--- NOTE | 2021-05-17 12:19 | XR ---
EXAMINATION TYPE: XR chest 2V DATE OF EXAM: 05/17/2021 COMPARISON: 06/09/2017 HISTORY: 89 years Female. STUDY INDICATION GIVEN: Altered mental status TECHNIQUE: Frontal and lateral chest radiographs FINDINGS AND IMPRESSION: Increased opacity is seen in the bilateral hilar and peripheral interstitium. The pattern suggests mi ld pulmonary edema/pulmonary vascular congestion a part of which is likely related to the supine posi tion however cardiogenic etiologies, atypical infectious etiologies, small airway disease or inflamma tory causes may have a similar appearance. Subsegmental atelectatic changes also seen in the lung bases. No pneumothorax or pleural effusion. The cardiomediastinal silhouette is within normal limit. Intrathoracic aorta atherosclerotic calcifications noted. Generalized osteopenia without acute osseous abdomen noted.
[2021-05-17] MEDS ORDERED: SODIUM CHLORIDE 0.9% 500 ML 500 ML IV ONE (12:30)
[2021-05-17] MEDS ORDERED: DOPamine DRIP 800 MG in DEXTROSE/WATER 1 250ML.BAG IV ONE (13:14)
[2021-05-17] MEDS ORDERED: INSULIN REGULAR BOLUS (FROM DRIP BAG) IV ONE (13:18)
[2021-05-17] MEDS ORDERED: Magnesium Replacement Protocol 1 EACH MISC MISCELLANE PRN (13:18)
[2021-05-17] MEDS ORDERED: Potassium Replacement Protocol 1 EACH MISC MISCELLANE PRN (13:18)
[2021-05-17] MEDS ORDERED: INSULIN REGULAR 100 UNIT in SODIUM CHLORIDE 0.9% 100 ML IV SCH (13:30)
[2021-05-17] MEDS ORDERED: SODIUM CHLORIDE 0.9% 1,000 ML IV SCH (13:30)
[2021-05-17 13:55] LABS: Glucose,Whole Blood 399 mg/dL (75-99)
[2021-05-17] MEDS ORDERED: cefTRIAXone IN SWFI 1,000 MG/10 ML SYRINGE IVP STA (14:51)
[2021-05-17] MEDS ORDERED: NITROGLYCERIN SL TABS 0.4 MG TAB SUBLINGUAL PRN (14:55)
[2021-05-17] MEDS ORDERED: HEPARIN SODIUM 1,000 UN/ML (10ML VL) IV ONE (14:55)
[2021-05-17] MEDS ORDERED: HEPARIN SOD,PORK IN 0.45% NACL 25,000 UNIT in 0.45% NACL 1 250ML.BAG IV SCH (15:00)
[2021-05-17 15:08] LABS: Glucose,Whole Blood 339 mg/dL (75-99)
[2021-05-17 15:25] LABS: Appearance,Urine Turbid (Clear); Bacteria,Urine Rare /hpf; Bilirubin,Urine Negative (Negative); Blood,Urine Large (Negative); Color,Urine Light Brown; Glucose,Urine (UA) 3+ (Negative); Hyaline Casts,Urine 14 /lpf (0-2); Ketones,Urine 1+ (Negative); Leukocyte Esterase,Urine Large (Negative); Nitrite,Urine Negative (Negative); Protein,Urine 3+ (Negative); RBC,Urine >182 /hpf (0-5); Specific Gravity,Urine 1.023 (1.001-1.035); Urobilinogen,Urine <2.0 mg/dL (<2.0); WBC,Urine >182 /hpf (0-5)
[2021-05-17 15:28] LABS: Amphetamine Screen,Urine Not Detected (NotDetected); Barbiturate Screen,Urine Not Detected (NotDetected); Benzodiazepines Screen,Urine Not Detected (NotDetected); Cocaine Screen,Urine Not Detected (NotDetected); Methadone Screen, Urine Not Detected (NotDetected); Opiate Screen,Urine Not Detected (NotDetected); Oxycodone Screen, Urine Not Detected (NotDetected); Phencyclidine Screen,Urine Not Detected (NotDetected); Tricyclic Antidepressant,Urine Not Detected (NotDetected); Urn Cannabinoid Scrn Not Detected (NotDetected)
[2021-05-17 15:54] LABS: VBG PH 7.35 (7.31-7.41)
[2021-05-17 16:03] LABS: Potassium 3.9 mmol/L (3.5-5.1)
[2021-05-17] MEDS ORDERED: fentaNYL (PF) 50 MCG/ML 2 ML AMP IVP PRN (16:05)
[2021-05-17] MEDS ORDERED: LORazepam 2 MG/ML INJ IV PRN (16:53)
[2021-05-17] MEDS ORDERED: LORazepam 2 MG/ML INJ IV STA (16:57)
[2021-05-17] MEDS ORDERED: MORPHINE SULFATE 4 MG/ML SYRINGE IVP STA (16:57)
[2021-05-17 17:32] VITALS: BP 76/52; PULSE 115; RESP 18
[2021-05-17] MEDS: MORPHINE SULFATE (100 MG/2 ML) 100 MG in SODIUM CHLORIDE 0.9% 100 ML IV SCH (17:52)
[2021-05-18] MEDS ORDERED: ASPIRIN 325 MG TAB PO SCH (09:00)
[2021-05-18] MEDS: MORPHINE SULFATE (100 MG/2 ML) 100 MG in SODIUM CHLORIDE 0.9% 100 ML IV SCH (19:11)
--- NOTE | 2021-05-19 16:01 | P.HPIM ---
History of Present Illness H&P Date: 05/18/21 Chief Complaint: Altered mental status, decreased responsiveness History and Physical and Discharge Summary This is an 89-year-old with past medical history of dementia, diabetes mellitus, hypertension presented to the ER via EMS, with declining mental status, confusion, poor appetite, hyperglycemic, possible acute UTI, decreased responsiveness. Family reports no nausea vomiting or diarrhea, no fever or chills. Brain CT reported no acute intracranial hemorrhage midline shift or mass effect, advanced brain volume loss, chronic microvascular ischemic changes and possible remote lacunar infarcts. Chest x-ray reported increased opacity in the bilateral hilar and peripheral interstitium, suggesting mild pulmonary edema likely related to supine position or inflammatory, subsegmental atelectatic changes and bilateral bases, generalized osteopenia. EKG reported sinus tachycardia with PACs, right bundle branch block, left anterior fascicular block, bifascicular block, septal infarct age undetermined, abnormal ECG. Troponins 27.000, 33.900. Afebrile, tachycardic, hypotensive, maintaining 91% O2 sat on room air on admission, desatted, requiring 2-3 L nasal cannula O2 to maintain O2 sats in the 90s. WBC 14.4, hemoglobin 11.4, MCV 100.5, platelets 218, sodium 138, potassium 4.6, bicarbonate 18, BUN 45, creatinine 1.57, glucose 503, positive acetone, lactic acid 5.5, T bili 1.4, AST 140, ALT 51, alk phos 1:30, creatinine kinase 547. UA reporting 14 hyaline casts, greater than 182 WBCs, large leukocytes negative nitrates, large blood and 1+ ketones 3+ glucose 3+ protein, urine culture in progress. Blood cultures in progress. IV fluids, antibiotics, dopamine, insulin and IV fluids initiated. After multiple discussions in the ER, family requested to proceed with comfort care, patient was placed on morphine drip. Hospice consulted. Review of Systems Unable to obtain ROS related to current condition, patient on morphine drip. Past Medical History Past Medical History: Dementia, Diabetes Mellitus, Hyperlipidemia, Hypertension Additional Past Medical History / Comment(s): POOR HISTORIAN, PAST FALLS -BROKE PELVIS(NO SX REQUIRED AND AN ELBOW "NOT SURE WHICH ONE" HAS PIN IN PLACE History of Any Multi-Drug Resistant Organisms: None Reported Past Surgical History: Orthopedic Surgery Additional Past Surgical History / Comment(s): ELBOW REPAIRED HAS A PIN IN PLACE, CATARACTS. Past Anesthesia/Blood Transfusion Reactions: No Reported Reaction Past Psychological History: No Psychological Hx Reported Additional Psychological History / Comment(s): PT LIVES WITH HER . NO A SSISTIVE DEVICES USED . NO HOME CARE SERVICE USED. Past Alcohol Use History: Occasional Past Drug Use History: None Reported - Past Family History Father Family Medical History: Myocardial Infarction ([place]) Mother Family Medical History: Cancer Additional Family Medical History / Comment(s): BREAST CANCER, LEUKEMIA Medications and Allergies Home Medications Medication Instructions Recorded Confirmed Type Olopatadine HCl [Pataday] 2 drops BOTH EYES HS 05/17/21 05/17/21 History LORazepam [Ativan] 0.5 mg SL Q8H PRN 3 Days #9 tab 05/18/21 Rx MORPHINE ORAL JAYLENE CONC 20mg/mL 10 mg PO Q4H PRN 3 Days #9 ml 05/18/21 Rx [Roxanol Oral Soln Conc 20MG/ML] Scopolamine 1.5MG/72Hr Patch 1 patch TRANSDERM Q72H #3 patch 05/18/21 Rx [TransDerm Scop] Allergies Allergy/AdvReac Type Severity Reaction Status Date / Time No Known Allergies Allergy Verified 06/09/17 14:03 Physical Exam Vitals: Vital Signs Pulse Ox 05/18/21 15:15 94 L Intake and Output 05/18/21 05/18/21 05/18/21 06:59 14:59 22:59 Intake Total 14.096 Output Total 100 Balance -85.904 Intake: Intake, IV Titration 14.096 Amount Morphine Sulfate (100 mg/ 14.096 2 ml) 100 mg In Sodium Chloride 0.9% 100 ml @ 1 MG/HR 1.02 mls/hr IV . Q24H [facility] Rx#:[id number] Oral 0 Output: Urine 100 Other: Voiding Method Indwelling Catheter PHYSICAL EXAM: VITAL SIGNS: [As above] GENERAL: Lying in bed, no acute distress, appears comfortable on morphine drip HEENT: Conjunctivae normal. eyes normal. NECK: Supple, No JVD. CARDIOVASCULAR: S1, S2 regular.No murmur RESPIRATION: Breath sounds diminished in the bases. ABDOMEN: Soft, nontender . No guarding. Positive bowel sounds. LEGS: No edema. no swelling NERVOUS SYSTEM: Unable to assess given patient's current condition Skin: Cool, dry, no rash Results CBC & Chem 7: 05/17/21 11:23 05/17/21 15:36 Labs: Abnormal Lab Results - Last 24 Hours (Table) 05/17/21 Range/Units 18:37 Plasma Lactic Acid Zay 7.7 H* (0.7-2.0) mmol/L Microbiology - Last 24 Hours (Table) 05/17/21 11:23 Blood Culture - Preliminary Blood No Growth after 24 hours 05/17/21 11:23 Urine Culture - Preliminary Urine,Clean Catch Assessment and Plan Assessment: Acute NSTEMI Hypotension secondary to the above Sinus tachycardia, abnormal EKG Acute DKA Lactic acidosis Acute UTI, culture pending Acute renal failure secondary to poor oral intake and #1 Delirium Dementia Failure to thrive Plan: Maintain comfort care. Hospice consult in place. Family requesting to take patient home with hospice as they have 24-hour care established. Patient will be discharged home once hospice arranged. Prognosis poor due to multiple complex medical issues. Discharge Medication List Olopatadine HCl [Pataday] 2 drops BOTH EYES HS 05/17/21 [History] LORazepam [Ativan] 0.5 mg SL Q8H PRN 3 Days #9 tab 05/18/21 [Rx] MORPHINE ORAL JAYLENE CONC 20mg/mL [Roxanol Oral Soln Conc 20MG/ML] 10 mg PO Q4H PRN 3 Days #9 ml 05/18/21 [Rx] Scopolamine 1.5MG/72Hr Patch [TransDerm Scop] 1 patch TRANSDERM Q72H #3 patch 05/18/21 [Rx] The impression and plan of care has been dictated as directed. : I performed a history and examination of this patient, discussed the same with the dictator. I agree with the dictator's note ,documented as a scribe. Any additional findings or plans will be noted.
== END 2021-05-18 20:05 | disposition hospice, home (50) | DRG 280 ==
LOC: EC 10:32 → 3SCARD 14:55 → 2SICU 15:06 → 5NMEDONC 17:42
PROVIDERS: ADMIT Family Medicine; ATTEND Family Medicine
DX: I21.4 Non-ST elevation (NSTEMI) myocardial infarction (principal); E11.10 Type 2 diabetes mellitus with ketoacidosis without coma; N17.9 Acute kidney failure, unspecified; Z68.1 Body mass index [BMI] 19.9 or less, adult; F05 Delirium due to known physiological condition; N39.0 Urinary tract infection, site not specified; Z51.5 Encounter for palliative care; E78.5 Hyperlipidemia, unspecified; I95.9 Hypotension, unspecified; R00.0 Tachycardia, unspecified; E86.0 Dehydration; F03.90 Unspecified dementia, unspecified severity, without behavioral disturbance, psychotic disturbance, mood disturbance, and anxiety; I10 Essential (primary) hypertension; R62.7 Adult failure to thrive; Z82.49 Family history of ischemic heart disease and other diseases of the circulatory system; Z80.6 Family history of leukemia; Z80.3 Family history of malignant neoplasm of breast
CPT/HCPCS: 36415; 70450; 71046; 80051; 80053; 80306; 81001; 82009; 82140; 82550; 82565; 82803; 82947; 83605; 84100; 84484; 84520; 85025; 85610; 85730; 87040; 87077; 87086; 87186; 93005; 94760; 96361; 96374; 96376; 99285